=== PATIENT | female | born 1975 | race Caucasian/White ===

== ENCOUNTER 2023-02-06 16:48 | Emergency (ER) | payer MEDICAID ==
[~2023-02-06] VITALS: Ht 157.5 cm; Wt 63.5 kg
[2023-02-06] MEDS ORDERED: MEDR150D9 IM (17:14)
[2023-02-06 17:49] LABS: HEMATOCRIT 41.9 % (31.2-41.9); MEAN CORPUSCULAR HEMOGLOBIN 27.9 uug (24.7-32.8); MEAN CORPUSCULAR VOLUME 84.5 fL (75.5-95.3); PLATELET COUNT (AUTO) 288 K/uL (179-408)
[2023-02-06 17:53] LABS: CARBON DIOXIDE 23 mmol/L (21-32); CHLORIDE 102 mmol/L (98-107); CREATININE 0.7 mg/dL (0.6-1.3); GLUCOSE 90 mg/dL (74-106); POTASSIUM 3.7 mmol/L (3.5-5.1); UREA NITROGEN, BLOOD 12 mg/dL (7-18)
--- NOTE | 2023-02-06 18:13 | NUR ---
Patient discharged to home by Dr Mims in stable condition with brisk steady gait. Written and verbal after care instructions given to patient. Patient verbalized understanding and compliance of instructions. Stressed follow up with primary doctor and research technologist or return to ER for worsening s/s.
[2023-02-06 18:14] VITALS: BP 113/69
== END 2023-02-06 18:15 | disposition home or self-care (01) ==
LOC: ER 16:51
DX: R07.89 Other chest pain (principal); R51.9 Headache, unspecified; R10.2 Pelvic and perineal pain; F17.210 Nicotine dependence, cigarettes, uncomplicated; Z88.2 Allergy status to sulfonamides; Z79.899 Other long term (current) drug therapy
CPT/HCPCS: 36415; 70450; 71045; 84484; 85025; 93005; A4663

== ENCOUNTER 2025-04-25 22:45 | Emergency (ER) | payer MEDICAID ==
[~2025-04-25] VITALS: Ht 154.9 cm; Wt 63.5 kg
[~2025-04-25 22:45] MED LIST: MEDR150D9 IM
[2025-04-25] MEDS ORDERED: ONDANSETRON 4 MG/2 ML VIAL ONE (23:51)
[2025-04-25] MEDS ORDERED: KETOROLAC TROMETHAMINE 30 MG INJ ONE (23:51)
[2025-04-25 23:54] LABS: *BILIRUBIN,URIN NEGATIVE (NEGATIVE); *BLOOD, URINE 2+ (NEGATIVE); *CLARITY,URINE CLEAR (CLEAR); *COLOR,URINE YELLOW (YELLOW); *KETONES,URINE NEGATIVE (NEGATIVE); *PROTEIN,URINE NEGATIVE (NEGATIVE); *UROBILINOGEN,URINE 0.2 E.U./dl (NORMAL); LEUKOCYTE ESTERASE ,URINE NEGATIVE (NEGATIVE); NITRITE, URINE NEGATIVE (NEGATIVE); PH,URINE 6.5 (5.0-8.0); UGLUCOSE NEGATIVE (NEGATIVE)
[2025-04-25 23:55] LABS: *URINE HCG, QUAL NEGATIVE (NEGATIVE)
[2025-04-26 00:04] LABS: CALCIUM 8.7 mg/dL (8.5-10.1); CREATININE 0.8 mg/dL (0.6-1.3); POTASSIUM 3.7 mmol/L (3.5-5.1)
[2025-04-26] MEDS: IV NORMAL SALINE 1000 ML BAG IV ONE (00:08)
[2025-04-26] MEDS: ONDANSETRON 4 MG/2 ML VIAL IV ONE (00:09)
[2025-04-26 00:10] LABS: ALBUMIN 3.9 g/dL (3.4-5.0); BASOPHILS # (AUTO) 0.1 K/UL (0.0-0.2); BASOPHILS % (AUTO) 0.5 % (0.0-2.0); BILIRUBIN,DIRECT 0.1 mg/dL (0.0-0.2); BILIRUBIN,TOTAL 0.3 mg/dL (0.2-1.0); EOSINOPHILS # (AUTO) 0.2 K/uL (0.0-0.7); EOSINOPHILS % (AUTO) 1.6 % (0.0-7.0); HEMATOCRIT 42.3 % (31.2-41.9); HEMOGLOBIN 14.7 g/dL (10.9-14.3); LYMPHOCYTES # (AUTO) 3.2 K/uL (0.8-4.8); LYMPHOCYTES % (AUTO) 31.6 % (20.5-51.5); MEAN CORPUSCULAR HEMOGLOBIN 29.2 uug (24.7-32.8); MEAN CORPUSCULAR HGB CONC 35 g/dL (32.3-35.6); MEAN CORPUSCULAR VOLUME 84.1 fL (75.5-95.3); MONOCYTES # (AUTO) 0.8 K/uL (0.1-1.30); MONOCYTES % (AUTO) 7.5 % (0.0-11.0); NEUTROPHILS % (AUTO) 58.8 % (38.5-71.5); PLATELET COUNT (AUTO) 249 K/uL (179-408); RED BLOOD CELL COUNT(AUTO) 5.03 MIL/uL (3.63-4.92); RED CELL DISTRIBUTION WIDTH 13.7 % (12.3-17.7); TOTAL PROTEIN, SERUM 6.8 g/dL (6.4-8.2); WHITE BLOOD COUNT (AUTO) 10.2 K/uL (3.8-11.8)
[2025-04-26] MEDS: KETOROLAC TROMETHAMINE 30 MG INJ IVP ONE (00:10)
[2025-04-26 00:12] LABS: DIFFERENTIAL COMMENT 1
[2025-04-26 01:29] LABS: BACTERIA,URINE FEW /HPF (NONE SEEN); SQUAMOUS EPITHELIAL CELL,UR FEW /HPF (NONE SEEN); WBC,URINE NONE SEEN /HPF (0-3)
[2025-04-26] MEDS ORDERED: IBUP-1490 PO (01:47)
[2025-04-26] MEDS ORDERED: ONDA4TAB11 PO (01:47)
[2025-04-26 01:57] VITALS: BP 136/71; O2SAT 97
== END 2025-04-26 01:59 | disposition home or self-care (01) ==
LOC: ER 22:53
DX: E86.0 Dehydration (principal); M79.10 Myalgia, unspecified site; R19.7 Diarrhea, unspecified; R05.9 Cough, unspecified; R07.9 Chest pain, unspecified; F17.210 Nicotine dependence, cigarettes, uncomplicated; Z79.3 Long term (current) use of hormonal contraceptives; Z88.2 Allergy status to sulfonamides; Z60.2 Problems related to living alone; Z20.822 Contact with and (suspected) exposure to COVID-19
CPT/HCPCS: 99285; 71045; 87804 ×2; 80076; 80048; 81001; 84703; 85025; 84484; 36415; 96374; 96361; 96375; 87426; 93005; J1885; J2405; J7040; A4606; A4663